=== PATIENT | female | born 1995 | race Caucasian/White ===

== ENCOUNTER 2017-04-07 07:00 | Observation (INO) | payer OTHER ==
[2017-04-07] MEDS ORDERED: NS 0.9% 1000 ML*IV.FLUID IV ONE (07:22)
[2017-04-07] MEDS ORDERED: cefTRIAXone(*) 1 GM in NS 0.9% 50 ML* 50 ML IVPB ONE (07:22)
[2017-04-07 07:49] LABS: Hematocrit 37 % (35-47); Hemoglobin 12.1 g/dl (12.0-16.0); Mean Corpuscular HGB Conc 33 g/dl (31-36); Mean Corpuscular Hemoglobin 26 pg (27-31); Mean Corpuscular Volume 79 fL (80-97); Mean Platelet Volume 9 um3 (7.4-10.4); Red Blood Count 4.62 10^6/ul (4.0-5.4); Red Cell Distribution Width 13 % (10.5-15); White Blood Count 9.6 10^3/ul (3.5-10.8)
[2017-04-07] MEDS ORDERED: Acetaminophen ADULT LIQ* 650 MG/20.3 ML UDC PO ONE (08:00)
[2017-04-07 08:04] LABS: ALT 15 U/L (7-52); AST 17 U/L (13-39); Albumin 4.1 g/dL (3.2-5.2); Alkaline Phosphatase 46 U/L (34-104); Anion Gap 10 mmol/L (2-11); BUN/Creatinine Ratio 9.6 (8-20); Blood Urea Nitrogen 8 mg/dL (6-24); C Reactive Protein 78.86 mg/L (< 5.00); CO2 Carbon Dioxide 22 mmol/L (22-32); Calcium 9.5 mg/dL (8.6-10.3); Chloride 103 mmol/L (101-111); Creatine Kinase 58 U/L (10-223); EGFR African American 110.6 (>60); Glucose 99 mg/dL (70-100); Potassium 3.5 mmol/L (3.5-5.0); Sodium 135 mmol/L (133-145); Total Protein 7.1 g/dL (6.4-8.9)
[2017-04-07 08:08] LABS: EBV Response NO
[2017-04-07 08:19] LABS: Manual Entry Verification HAN0055; Mono Internal Control QC Line Present
--- NOTE | 2017-04-07 08:20 | RAD ---
INDICATION: Flulike symptoms; shortness of breath; fever. COMPARISON: No relevant prior exams available on the [facility] PACS for comparison. TECHNIQUE: Dual energy PA and routine lateral views of the chest were obtained. REPORT: Clear lungs and pleural spaces. Negative for pneumothorax. The heart, pulmonary vasculature, and mediastinal contours are unremarkable. Unremarkable osseous structures and soft tissue contours. IMPRESSION: No evidence for pneumonia. No evidence for acute intrathoracic disease.
[2017-04-07 08:55] LABS: Urine Bacteria Absent (Absent); Urine Bilirubin Negative (Negative); Urine Glucose Negative (Negative); Urine Nitrite Negative (Negative)
[2017-04-07 09:16] LABS: Erythrocyte Sed Rate 21 mm/Hr (0-14)
[2017-04-07] MEDS ORDERED: Azithromycin TAB* 250 MG PO ONE (14:00)
[2017-04-07] MEDS ORDERED: Ciprofloxacin 0.3% OPTH.SOL* 2.5 ML BTL RIGHT EYE SCH (14:00)
[2017-04-07] MEDS: Ondansetron INJ* 2 MG/ML VIAL IV PRN (14:14)
[2017-04-07] MEDS: Acetaminophen TAB* 325 MG PO PRN (14:15)
[2017-04-07] MEDS: NS 0.9% 1000 ML* 1,000 ML IV SCH ×2 (14:17→23:44)
--- NOTE | 2017-04-07 15:34 | RAD ---
Indication: LEFT flank pain. Post RIGHT nephrectomy. Comparison: June 10, 2015 lumbar spine MRI. Technique: Renal ultrasound. Report: Negative for suspicious finding at the post nephrectomy RIGHT renal fossa. 12.6 x 4.7 x 5.8 cm normal morphology LEFT kidney with normal cortical echogenicity. No conspicuous stones, hydronephrosis, or focal renal lesions. Negative for perinephric fluid. Limited images at the urinary bladder document a robust LEFT ureteral jet. IMPRESSION: 1. Post RIGHT nephrectomy. 2. Unremarkable LEFT kidney.
--- NOTE | 2017-04-07 17:00 | ED ---
Melvin Murphy Alfonso, scribed for Cuong Birmingham MD on 04/07/17 at 0849 . Complex/Multi-Sys Presentation - HPI Summary HPI Summary: This patient is a 22 year old F presenting to [facility] accompanied by male friend with a chief complaint of generalized illness since one week ago. The patient rates the pain 6/10 in severity. Symptoms alleviated by nothing. Patient reports fever, chills, tiredness, right eye injective conjunctiva, sore throat, N/V/D, loss of appetite, lower back pain (she has 1 kidney s/p a surgery), vaginal discharge (light pink, but does not think it is menses because she is on a BCP), and dizziness. Patient denies abdominal pain. - History Of Current Complaint Chief Complaint: EDGeneral Time Seen by Provider: 04/07/17 07:21 Hx Obtained From: Patient Onset/Duration: Gradual Onset, Lasting Weeks - 1, Still Present Timing: Constant Severity Currently: Moderate - 6/10 pain Alleviating Factor(s): Nothing Associated Signs And Symptoms: Positive: Other - fever, chills, tiredness, right eye injective conjunctiva, sore throat, N/V/D, loss of appetite, lower back pain (she has 1 kidney s/p a surgery), vaginal discharge (light pink, but does not think it is menses because she is on a BCP), and dizziness. Patient denies abdominal pain. - Allergies/Home Medications Allergies/Adverse Reactions: Allergies Allergy/AdvReac Type Severity Reaction Status Date / Time No Known Allergies Allergy Verified 04/07/17 07:08 Home Medications: Home Medications Norethindrone Acetate-Ethinyl [Lo Loestrin Fe 1 mg-10 Mcg / 10 Mcg] 1 tab PO DAILY 04/07/17 [History Confirmed 04/07/17] PMH/Surg Hx/FS Hx/Imm Hx Endocrine/Hematology History: Denies: Hx Diabetes Cardiovascular History: Denies: Hx Hypertension, Hx Pacemaker/ICD History: Denies: Hx Renal Disease Sensory History: Denies: Hx Hearing Aid Opthamlomology History: Denies: Hx Legally Blind EENT History: Denies: Hx Deafness Psychiatric History: Denies: Hx Panic Disorder - Cancer History Cancer Type, 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 Hx Chemotherapy: Yes Hx Radiation Therapy: Yes - Surgical History Surgery Procedure, Year, and Place: Rt NEPHRECTOMY- TUMORS- AGE 3 Infectious Disease History: No Infectious Disease History: Denies: Traveled Outside the [place] in Last 30 Days - Family History Known Family History: Positive: Other - Cancer - Social History Occupation: Student Alcohol Use: None Hx Substance Use: No Substance Use Type: Reports: None Hx Tobacco Use: No Smoking Status (MU): Never Smoked Tobacco Review of Systems Positive: Fever, Chills, Other - generalized illness, tiredness Positive: Other - right eye injective conjunctiva Positive: Sore Throat Positive: Vomiting, Diarrhea, Nausea, Other - loss of appetite. Negative: Abdominal Pain Positive: other - vaginal discharge (light pink, but does not think it is menses because she is on a BCP) Positive: Other - lower back pain (she has 1 kidney s/p a surgery) Neurological: Other - dizziness All Other Systems Reviewed And Are Negative: Yes Physical Exam - Summary Physical Exam Summary: VITAL SIGNS: Reviewed. GENERAL: Patient is a well-developed and nourished female who is lying comfortable in the stretcher. Patient is not in any acute respiratory distress. HEAD AND FACE: No signs of trauma. No ecchymosis, hematomas or skull depressions. No sinus tenderness. EYES: PERRLA, EOMI x 2, No injected conjunctiva, no nystagmus. EARS: Hearing grossly intact. Ear canals and tympanic membranes are within normal limits. MOUTH: Exudates at right tonsil. NECK: Supple, trachea is midline, no adenopathy, no JVD, no carotid bruit, no c- spine tenderness, neck with full ROM. CHEST: Symmetric, no tenderness at palpation LUNGS: Clear to auscultation bilaterally. No wheezing or crackles. CVS: Regular rate and rhythm, S1 and S2 present, no murmurs or gallops appreciated. ABDOMEN: Soft, non-tender. No signs of distention. No rebound no guarding, and no masses palpated. Bowel sounds are normal. EXTREMITIES: FROM in all major joints, no edema, no cyanosis or clubbing. NEURO: Alert and oriented x 3. No acute neurological deficits. Speech is normal and follows commands. SKIN: Dry and warm Triage Information Reviewed: Yes Vital Signs On Initial Exam: Initial Vitals Temp Pulse Resp BP Pulse Ox 101.2 F 113 18 121/74 95 04/07/17 07:05 04/07/17 07:05 04/07/17 07:05 04/07/17 07:05 04/07/17 07:05 Vital Signs Reviewed: Yes Diagnostics - Vital Signs Vital Signs Temp Pulse Resp BP Pulse Ox 04/07/17 07:29 109/72 04/07/17 07:05 101.2 F 113 18 121/74 95 - Laboratory Lab Results: Lab Results 04/07/17 04/07/17 04/07/17 Range/Units 07:25 07:25 07:25 WBC 9.6 (3.5-10.8) 10^3/ul RBC 4.62 (4.0-5.4) 10^6/ul Hgb 12.1 (12.0-16.0) g/dl Hct 37 (35-47) % MCV 79 L (80-97) fL MCH 26 L (27-31) pg MCHC 33 (31-36) g/dl RDW 13 (10.5-15) % Plt Count 248 (150-450) 10^3/ul MPV 9 (7.4-10.4) um3 Neut % (Auto) 82.4 (38-83) % Lymph % (Auto) 9.6 L (25-47) % Morton % (Auto) 7.5 (1-9) % Eos % (Auto) 0.1 (0-6) % Baso % (Auto) 0.4 (0-2) % Absolute Neuts (auto) 7.9 H (1.5-7.7) 10^3/ul Absolute Lymphs (auto) 0.9 L (1.0-4.8) 10^3/ul Absolute Monos (auto) 0.7 (0-0.8) 10^3/ul Absolute Eos (auto) 0 (0-0.6) 10^3/ul Absolute Basos (auto) 0 (0-0.2) 10^3/ul Absolute Nucleated RBC 0 10^3/ul Nucleated RBC % 0 ESR Pending INR (Anticoag Therapy) 0.98 (0.77-1.02) APTT 25.4 L (26.0-36.3) seconds Fibrinogen 432 H (110.8-404.3) mg/dL Sodium 135 (133-145) mmol/L Potassium 3.5 (3.5-5.0) mmol/L Chloride 103 (101-111) mmol/L Carbon Dioxide 22 (22-32) mmol/L Anion Gap 10 (2-11) mmol/L BUN 8 (6-24) mg/dL Creatinine 0.83 (0.51-0.95) mg/dL Est GFR ( Amer) 110.6 (>60) Est GFR (Non-Af Amer) 86.0 (>60) BUN/Creatinine Ratio 9.6 (8-20) Glucose 99 (70-100) mg/dL Lactic Acid (0.5-2.0) mmol/L Calcium 9.5 (8.6-10.3) mg/dL Total Bilirubin 0.40 (0.2-1.0) mg/dL AST 17 (13-39) U/L ALT 15 (7-52) U/L Alkaline Phosphatase 46 (34-104) U/L Total Creatine Kinase 58 (10-223) U/L Troponin I 0.00 (<0.04) ng/mL C-Reactive Protein 78.86 H (< 5.00) mg/L Total Protein 7.1 (6.4-8.9) g/dL Albumin 4.1 (3.2-5.2) g/dL Globulin 3.0 (2-4) g/dL Albumin/Globulin Ratio 1.4 (1-3) Procalcitonin (<0.6) ng/mL Monoscreen Negative (Negative) Influenza A (Rapid) (Negative) Influenza B (Rapid) (Negative) 04/07/17 04/07/17 04/07/17 Range/Units 07:25 07:25 07:53 WBC (3.5-10.8) 10^3/ul RBC (4.0-5.4) 10^6/ul Hgb (12.0-16.0) g/dl Hct (35-47) % MCV (80-97) fL MCH (27-31) pg MCHC (31-36) g/dl RDW (10.5-15) % Plt Count (150-450) 10^3/ul MPV (7.4-10.4) um3 Neut % (Auto) (38-83) % Lymph % (Auto) (25-47) % Morton % (Auto) (1-9) % Eos % (Auto) (0-6) % Baso % (Auto) (0-2) % Absolute Neuts (auto) (1.5-7.7) 10^3/ul Absolute Lymphs (auto) (1.0-4.8) 10^3/ul Absolute Monos (auto) (0-0.8) 10^3/ul Absolute Eos (auto) (0-0.6) 10^3/ul Absolute Basos (auto) (0-0.2) 10^3/ul Absolute Nucleated RBC 10^3/ul Nucleated RBC % ESR INR (Anticoag Therapy) (0.77-1.02) APTT (26.0-36.3) seconds Fibrinogen (110.8-404.3) mg/dL Sodium (133-145) mmol/L Potassium (3.5-5.0) mmol/L Chloride (101-111) mmol/L Carbon Dioxide (22-32) mmol/L Anion Gap (2-11) mmol/L BUN (6-24) mg/dL Creatinine (0.51-0.95) mg/dL Est GFR ( Amer) (>60) Est GFR (Non-Af Amer) (>60) BUN/Creatinine Ratio (8-20) Glucose (70-100) mg/dL Lactic Acid 0.9 (0.5-2.0) mmol/L Calcium (8.6-10.3) mg/dL Total Bilirubin (0.2-1.0) mg/dL AST (13-39) U/L ALT (7-52) U/L Alkaline Phosphatase (34-104) U/L Total Creatine Kinase (10-223) U/L Troponin I (<0.04) ng/mL C-Reactive Protein (< 5.00) mg/L Total Protein (6.4-8.9) g/dL Albumin (3.2-5.2) g/dL Globulin (2-4) g/dL Albumin/Globulin Ratio (1-3) Procalcitonin < 0.1 (<0.6) ng/mL Monoscreen (Negative) Influenza A (Rapid) Negative (Negative) Influenza B (Rapid) Negative (Negative) Result Diagrams: 04/07/17 07:25 04/07/17 07:25 Lab Statement: Any lab studies that have been ordered have been reviewed, and results considered in the medical decision making process. - Radiology CXR Radiology Interpretation Completed By: Radiologist - No evidence for pneumonia. No evidence for acute intrathoracic disease. ED physician has reviewed this radiology report. - EKG 0815 Cardiac Rate: NL EKG Rhythm: Sinus Rhythm - 98 BPM EKG Interpretation: NAC. Complex Multi-Symp Course/Dx Assessment/Plan: This patient is a 22 year old F presenting to [facility] accompanied by male friend with a chief complaint of generalized illness since one week ago. The patient rates the pain 6/10 in severity. Symptoms alleviated by nothing. Patient reports fever, chills, tiredness, right eye injective conjunctiva, sore throat, N/V/D, loss of appetite, lower back pain (she has 1 kidney s/p a surgery), vaginal discharge (light pink, but does not think it is menses because she is on a BCP), and dizziness. Patient denies abdominal pain. An EKG reveals Sinus Rhythm at 98 BPM and NAC. CXR reveals, per radiologist, No evidence for pneumonia. No evidence for acute intrathoracic disease. ED physician has reviewed this radiology report. Test results with no significant abnormalities except for fibrinogen of 432, CRP of 78.9. Urinalysis negative for UTI. Monoscreen, influenza, and strep all negative. Initially the patient was positive for sepsis. Therefore, the sepsis protocol was started with IV fluids, Tylenol for the fever, and Rocephin to rule out UTI and use as a broad spectrum abx. Urinalysis negative and there is no site of infection. However, since the patient is positive for sepsis. I consulted Dr. Jean (hospitalist) at 1146 who agrees to admit for observation. The patient is agreeable with this plan. The patient is hemodynamically stable, alert and oriented x3. - Diagnoses Provider Diagnoses: SIRS (systemic inflammatory response syndrome) - Physician Notifications Discussed Care Of Patient With: Erika Jean Time Discussed With Above Provider: 11:46 Instructed by Provider To: Other - Consulted Dr. Jean (hospitalist) at 1146 who agrees to admit. Discharge - Discharge Plan Condition: Stable Disposition: ADMITTED TO [facility] Referrals: [facility] - David KULKARNI [Primary Care Provider] - The documentation as recorded by the scribe, Caetta,Raimundo accurately reflects the service I personally performed and the decisions made by me, Cuong Birmingahm MD.
[2017-04-07] MEDS ORDERED: Artificial Tears* 15 ML BTL RIGHT EYE PRN (20:44)
--- NOTE | 2017-04-07 21:00 | HP ---
CC: [facility] * HISTORY AND PHYSICAL: DATE OF ADMISSION: 04/07/17 PRIMARY CARE PROVIDER: [facility]. ATTENDING PHYSICIAN WHILE IN THE HOSPITAL: Dr. Erika Jean * (report dictated by Jose R Navarro NP). CHIEF COMPLAINT: 1. Fever. 2. Sore throat. 3. Nausea, vomiting, diarrhea. HISTORY OF PRESENT ILLNESS: Ms. Ricci is a 22-year-old female patient. She has a history of Wilms tumor status post right nephrectomy. She comes in to the ER today. Since last few days, she initially started out with having redness in her eye and discharge. She was diagnosed with pink eye. She was started on ophthalmic ciprofloxacin. She said then thereafter she started having some nausea and vomiting. She was aching all over. She was chilled. She could not get warm. She was covering up in blankets to get warm. No matter what she did , she was just feeling chilled. She had no recent trips, no recent sick contacts. She started vomiting, could not even keep water down and that was going on for the last 24 hours and she started having diarrhea. She checked her temperature and that was noted to be elevated at 101 today. She was concerned and came in. She has also been complaining of having some flank pain on the left side where her one kidney is. In addition to this, she has also been complaining of having some pink vaginal discharge, but it is not malodorous. There is no reports of dysuria, frequency, or burning with urination. She was concerned too because she noticed that she had some more redness in her eye. She came into the ER and was evaluated. Initially when she came in, she again had a fever of 101. She was tachycardic at 113. Temperature came down and heart rate came down, but her blood pressure had dropped down into the 90s and there was concern that she may require additional IV fluids and that she was showing signs of SIRS, so we were asked to evaluate. She denies having any chest pain. Denies shortness of breath. She said that her throat is sore, hurts to swallow. She states prior to this, she did have some sores in her mouth, but those are now gone. Again, there was concern and we were asked to evaluate for admission. Denies any abdominal pain, and aches mostly on the left flank. PAST MEDICAL HISTORY: Significant for Wilms tumor. PAST SURGICAL HISTORY: She has had a right nephrectomy. HOME MEDICATIONS: Include: 1. Loestrin one tablet p.o. daily. 2. Cipro drops one drop every 4 hours to the right eye. ALLERGIES TO MEDICATION: Include no known drug allergies. FAMILY HISTORY: She states both her parents are healthy. She specifically denied of them having any history of cancers, strokes, high blood pressure, or heart disease. SOCIAL HISTORY: She does not smoke. She does not drink. 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 Surrogate decision makers are her parents. REVIEW OF SYSTEMS: There is a documented fever. She denied any significant weight change. She was no double vision. She denies having any ear discharge. She denies having any rhinorrhea. She does state that she feels congested. She does admit to nausea, vomiting and diarrhea. No abdominal pain with the exception of left flank pain. She denied any dysuria, no frequency, no seizure , no loss of consciousness, no pruritus and no skin ulcerations. Review of 14 systems completed, all others negative. PHYSICAL EXAMINATION GENERAL: At this time, Ms. Ricci is a 22-year-old female patient, she is sitting in the ED stretcher. She does not appeared to be in any acute distress. VITAL SIGNS: Blood pressure 100/67, pulse 82, respirations 18, O2 sat 97%, temperature initially was 101.2, it is now 98.8. HEENT: Head is atraumatic. Eyes: Sclerae was anicteric. There was conjunctival hemorrhage noted in the right eye with petechiae surrounding that right eye. There did not appear to be any erythema to the lower lid. Left eye with no signs of hemorrhage were noted. EOMs intact. Pupils are reactive to light. Throat: Oral mucosa appears to be moist. There is actually no oropharyngeal erythema at this point. No patchy exudates. No sores are noted in the mouth. NECK: Supple. LUNGS: Clear to auscultation bilaterally. No wheezes, rales, or rhonchi. HEART: Heart sounds S1 and S2, regular rate and rhythm. No murmurs, rubs, or gallops. ABDOMEN: Soft, flat, nontender. She did have some tenderness on the left CVA. EXTREMITIES: Pulses are +2 throughout. She is moving all 4 extremities with 5/ 5 strength. NEUROLOGIC: The patient is awake, alert, oriented x3. No gross focal deficits. SKIN: Intact. LABORATORY DATA: WBC is 9.6, RBC 4.62, hemoglobin 12.1, hematocrit 37, and platelet count of 248. ESR was 21. INR was 0.98, PTT was 25. Her sodium is 135, potassium 3.5, chloride of 103, bicarb was 22, BUN is 8, creatinine 0.83, lactate 0.9, calcium 9.5, total bili 0.4, AST 17, ALT 15, alk phos 46. CK 58. Troponin 0. CRP is 78. Albumin of 4.1. Procalcitonin less than 1. Urine shows 2+ ketones, 2+ blood, presence of squamous epithelial cells. Wake, flu, and rapid strep were all negative. Beta hCG is pending. She had a chest x-ray obtained today, with impression: No evidence for pneumonia. No evidence for acute intrathoracic disease. EKG shows normal sinus rhythm, rate of [address] No [address] elevations or T-wave inversions noted. No previous for comparison. Old medical records reviewed. ASSESSMENT AND PLAN: Ms. Ricci is a 22-year-old female patient coming into the ED today with complaints of nausea, vomiting, diarrhea. She also has been complaining of ache in the left flank. We are asked to evaluate for admission. She will be admitted under observation status: 1. Systemic inflammatory response syndrome. When she came in, she was tachycardic, in addition to this has had a fever. This is probably related to viral illness. However, because of the left flank pain and the fact that she has one kidney from Wilms disease and the fact that she has got some blood in the urine, I would like to get an ultrasound of the renal system to make sure there is no obstruction or stones, to make sure thinks appear to be appropriately draining. She has been pancultured here in the ED. We will monitor the culture. She did get hypotensive down into the 90s here, but I think it is probably from dehydration as she has been vomiting and will continue to follow. 2. Vaginal discharge. I have asked the ER provider to obtain a pelvic exam for me and we will send off for GC, Chlamydia, and Trichomonas as well and we will follow. I am also checking beta hCG. 3. Conjunctival hemorrhage to the right eye. Again, this is probably conjunctival hemorrhage from her vomiting. It should absorb on its own. I will continue the Cipro drops to completion as they were prescribed previously for conjunctivitis and she can follow back up with Nathaly for this. 4. DVT prophylaxis. She is at low risk. SCDs. 5. Fluids, electrolytes, and nutrition. Normal saline at 125 an hour. In addition to this, we will place her on clear liquid diet. 5. Code status. Full code. TIME SPENT: Time spent on the admission was 60 minutes, greater than half the time was spent [id number] with the patient obtaining my history of physical; the other half time was spent going over the plan of care with the patient and implementing plan of care. I did discuss the plan of care with my attending Dr. Jean; she is in agreement. JOSE R NAVARRO, ROSAURA [id number]/CPS #: [id number] MAGDA
[2017-04-08] MEDS: Ondansetron INJ* 2 MG/ML VIAL IV PRN ×2 (01:20→18:14)
[2017-04-08] MEDS: Acetaminophen TAB* 325 MG PO PRN ×3 (01:23→21:41)
[2017-04-08] MEDS ORDERED: Benzocaine/Menthol LOZ* 1 LOZENGE MT PRN (01:25)
[2017-04-08 05:49] LABS: Hematocrit 34 % (35-47); Mean Corpuscular HGB Conc 33 g/dl (31-36); Mean Corpuscular Hemoglobin 26 pg (27-31); Mean Corpuscular Volume 80 fL (80-97); Mean Platelet Volume 9 um3 (7.4-10.4); Red Blood Count 4.21 10^6/ul (4.0-5.4); Red Cell Distribution Width 13 % (10.5-15); White Blood Count 5.8 10^3/ul (3.5-10.8)
[2017-04-08 06:04] LABS: BUN/Creatinine Ratio 5.8 (8-20); Calcium 8.4 mg/dL (8.6-10.3); EGFR African American 136.8 (>60); EGFR Non-African American 106.4 (>60); Potassium 3.5 mmol/L (3.5-5.0)
[2017-04-08] MEDS: NS 0.9% 1000 ML* 1,000 ML IV SCH ×2 (08:07→12:41)
[2017-04-08] MEDS ORDERED: Benzocaine/Menthol LOZ* 1 LOZENGE PO PRN (08:10)
[2017-04-08] MEDS ORDERED: Benzocaine/Menthol LOZ* 1 LOZENGE ONE (08:13)
--- NOTE | 2017-04-08 10:05 | PN ---
Subjective Date of Service: 04/08/17 Interval History: Patient seen and examined at bedside. Patient reports sore throat and discomfort at the IV site. Tmax 101.3 at midnight now 99. Denies N/V/D at this time. Requesting a little more solid food. Denies visual disturbances in L eye. Reports extra tearing and discharge. Family History: Unchanged from Admission Social History: Unchanged from Admission Past Medical History: Unchanged from Admission Objective Active Medications: Acetaminophen (Tylenol Tab*) 650 mg PO Q4H PRN Ciprofloxacin HCl (Cipro 0.3% Opth*) 1 drop RIGHT EYE Q4HR PETRONA Ondansetron HCl (Zofran Inj*) 4 mg IV Q6H PRN Polyvinyl Alcohol (Polyvinyl Alcohol 1.4% Opth*) 1 drop RIGHT EYE Q2H PRN Throat Lozenges (Chloraseptic Almas*) 1 almas PO Q6H PRN Vital Signs Temp Pulse Resp BP Pulse Ox 99.2 F 84 18 107/64 99 04/08/17 08:01 04/08/17 08:01 04/08/17 08:01 04/08/17 08:01 04/08/17 08:01 Oxygen Devices in Use Now: None Appearance: sitting up in bed, NAD Eyes: No Scleral Icterus, PERRLA, - - R eye with circumferential bruising and small conjunctival hemorrhage. Ears/Nose/Mouth/Throat: - - no oropharyngeal edema or pathcy exudates. Neck: NL Appearance and Movements; NL JVP Respiratory: Symmetrical Chest Expansion and Respiratory Effort, Clear to Auscultation Cardiovascular: NL Sounds; No Murmurs; No JVD, RRR, No Edema Extremities: No Edema Skin: No Rash or Ulcers Neurological: Alert and Oriented x 3, NL Muscle Strength and Tone Lines/Tubes/Other Access: Clean, Dry and Intact Peripheral IV Nutrition: Taking PO's Result Diagrams: 04/08/17 05:29 04/08/17 05:29 Microbiology and Other Data: . Assess/Plan/Problems-Billing Patient is a 22 y/o F w/ no significant PMH who presented to the ER w/ the c/o of fever and body aches found to be tachycardiac with a likely viral illness. - Patient Problems (1) SIRS (systemic inflammatory response syndrome) Comment: Tachycardia improved. Fever up to 101 at midnight and has improved. Suspect viral illness. All testing thus far negative - flu, strep A, mono, blood cx. (2) Viral illness Comment: See problem #1. Continue supportive care with IVF, throat lozenges, and Tylenol. Chlamydia and trich test pending yet patient has no pelvic pain and this seems unlikely as the cause of her SIRS. (3) Viral conjunctivitis of right eye Comment: Likely viral but continue Cipro drops as she has almost completed the course. (4) Left flank pain Comment: Hx of left nephrectomy. Renal ultrasound negative for any obstructing stone or other abnormality. (5) Vaginal discharge Comment: Chlamydia and Trichomonaisis pending yet no pelvic pain so seems unlikely. (6) DVT prophylaxis Comment: low risk SCDs (7) Full code status Status and Disposition: OBV for fever. If fever free all day possible discharge later today.
[2017-04-08] MEDS: Ciprofloxacin 0.3% OPTH.SOL* 2.5 ML BTL RIGHT EYE SCH ×4 (10:30→21:42)
[2017-04-08] MEDS: metroNIDAZOLE TAB* 250 MG PO SCH ×2 (14:38→21:41)
[2017-04-09] MEDS: Ciprofloxacin 0.3% OPTH.SOL* 2.5 ML BTL RIGHT EYE SCH ×3 (00:49→08:39)
[2017-04-09] MEDS: NS 0.9% 1000 ML* 1,000 ML IV SCH (00:49)
[2017-04-09] MEDS: Ondansetron INJ* 2 MG/ML VIAL IV PRN (05:10)
--- NOTE | 2017-04-09 08:26 | DCNOTE ---
Subjective Date of Service: 04/09/17 Interval History: Patient seen and examined at bedside. Patient has low grade temp this AM. Still c/o of intermittent nausea. Feels much better overall. Family History: Unchanged from Admission Social History: Unchanged from Admission Past Medical History: Unchanged from Admission Objective Active Medications: Acetaminophen (Tylenol Tab*) 650 mg PO Q4H PRN Amoxicillin (Amoxicillin Po (*)) 500 mg PO TID PETRONA Ciprofloxacin HCl (Cipro 0.3% Opth*) 1 drop RIGHT EYE Q4HR PETRONA Metronidazole (Flagyl Tab*) 500 mg PO TID PETRONA Ondansetron HCl (Zofran Inj*) 4 mg IV Q6H PRN Polyvinyl Alcohol (Polyvinyl Alcohol 1.4% Opth*) 1 drop RIGHT EYE Q2H PRN Throat Lozenges (Chloraseptic Almas*) 1 almas PO Q6H PRN Vital Signs Temp Pulse Resp BP Pulse Ox 99.8 F 87 16 108/68 99 04/09/17 03:46 04/09/17 03:46 04/09/17 03:46 04/09/17 03:46 04/09/17 03:46 Oxygen Devices in Use Now: None Appearance: sitting up in bed, NAD Eyes: No Scleral Icterus, PERRLA Ears/Nose/Mouth/Throat: NL Teeth, Lips, Gums, - - patchy exudates Neck: NL Appearance and Movements; NL JVP Respiratory: Symmetrical Chest Expansion and Respiratory Effort, Clear to Auscultation Cardiovascular: NL Sounds; No Murmurs; No JVD, RRR Extremities: No Edema Skin: No Rash or Ulcers Neurological: Alert and Oriented x 3, NL Muscle Strength and Tone Lines/Tubes/Other Access: Clean, Dry and Intact Peripheral IV Result Diagrams: 04/08/17 05:29 04/08/17 05:29 Microbiology and Other Data: . Assess/Plan/Problems-Billing Patient is a 22 y/o F w/ no significant PMH who presented to the ER w/ the c/o of fever and body aches found to be tachycardiac with a likely viral illness. - Patient Problems (1) SIRS (systemic inflammatory response syndrome) Comment: Tachycardia improved. Fever up to 101 at midnight and has improved. Suspect viral illness. All testing thus far negative - flu, strep A, mono, blood cx. (2) Viral illness Comment: Suspect pharyngitis. Tx with 10 days of amoxicillin. (3) Viral conjunctivitis of right eye Comment: Likely viral but continue Cipro drops as she has almost completed the course. (4) Left flank pain Comment: Hx of left nephrectomy. Renal ultrasound negative for any obstructing stone or other abnormality. (5) Vaginal discharge Comment: Positive for Gardnerella; tx with 5 day course of Flagyl. (6) DVT prophylaxis Comment: low risk SCDs (7) Full code status Status and Disposition: OBV for fever. Stable to be discharged home.
[2017-04-09] MEDS: metroNIDAZOLE TAB* 250 MG PO SCH (08:39)
[2017-04-09] MEDS: Acetaminophen TAB* 325 MG PO PRN (08:39)
[2017-04-09] MEDS ORDERED: Amoxicillin PO (*) 500 MG CAP PO SCH (09:00)
[2017-04-09 09:29] VITALS: BP 99/52
--- NOTE | 2017-04-09 12:30 | DS ---
CC: [facility] * DISCHARGE SUMMARY: DATE OF ADMISSION: 04/07/17 DATE OF DISCHARGE: 04/09/17 PRIMARY CARE PROVIDER: [facility]. ATTENDING PHYSICIAN: Payton Machado MD * (report dictated by Nereida Huddleston NP). PRIMARY DIAGNOSES: 1. Acute pharyngitis. 2. Systemic inflammatory response syndrome. 3. Bacterial vaginosis. STUDIES WHILE IN THE HOSPITAL: 1. Chest x-ray, 04/07/17, no evidence for pneumonia, no evidence for acute intrathoracic disease. 2. Limited left renal ultrasound, 04/07/17, post right nephrectomy, unremarkable left kidney. MEDICATIONS AT THE TIME OF DISCHARGE: New medications: 1. Tylenol 650 mg oral every 4 hours as needed. 2. Amoxicillin 500 mg oral 3 times daily. 3. Flagyl 500 mg oral 3 times daily. 4. Zofran 4 mg every 6 hours as needed. 5. The patient has been instructed to resume Lo Loestrin control 1 tablet oral daily. 6. Cipro 0.3 drops 1 drop right eye 4 times daily. HISTORY OF PRESENT ILLNESS AND HOSPITAL COURSE: Ms. Ricci is a 22-year-old female with history of a Wilms tumor, status post right nephrectomy who presented to the emergency room on 04/07/17 with complaints of nausea, vomiting , flank pain, and sore throat. In addition, she had a fever up to 101 and was tachycardic up to 113. For these reasons, the patient was admitted to the medical floor for further workup and treatment. The patient had a flu and strep test as well as a mono screen that were all negative. She had blood cultures that were negative. The patient was given aggressive IV fluid resuscitation. With fluids, the patient's tachycardia improved. The patient did develop patchy exudates in her throat and will be treated with a 10-day course of amoxicillin at discharge. Upon presentation, the patient also complained of pinkish vaginal discharge. The patient had a pelvic exam and was positive for Gardnerella. The patient was negative for gonorrhea as well as trichomoniasis. The patient will be given a course of Flagyl, which she can choose to start treatment for the Gardnerella whenever she would like. PHYSICAL EXAMINATION: Vital Signs: On 04/09/17; temperature 99.8, heart rate 87, respiratory rate 16, blood pressure 108/68, O2 saturation is 99% on room air. DISPOSITION: At this point, the patient was tolerating oral intake and was stable to be discharged home. DISCHARGE PLAN: The patient will be discharged on a regular diet. The patient has been instructed to follow up with [facility] later this week before she returns home for the semester. The patient has been instructed to return to the hospital if she experiences any worsening fever or inability to tolerate oral liquids and solids. I reviewed the instructions with the patient and her boyfriend. They are agreeable with the discharge today. This is a summarized report of a complex medical history and hospital stay. For more details, please see the entire medical record. TIME SPENT: Time for discharge was 50 minutes, and 25 minutes were spent with the patient discussing medications at discharge and followup instructions. CONDITION ON DISCHARGE: Stable. NEREIDA HUDDLESTON NP [id number]/CPS #: [id number] MAGDA
== END 2017-04-09 10:30 | disposition home or self-care (01) ==
LOC: ED 07:00 → MED 12:43
PROVIDERS: ADMIT Nurse Practitioner Family; ATTEND Internal Medicine
DX: J02.9 Acute pharyngitis, unspecified (principal); R65.10 Systemic inflammatory response syndrome (SIRS) of non-infectious origin without acute organ dysfunction; N76.0 Acute vaginitis; B96.89 Other specified bacterial agents as the cause of diseases classified elsewhere; R50.9 Fever, unspecified; R11.2 Nausea with vomiting, unspecified; R19.7 Diarrhea, unspecified; H11.31 Conjunctival hemorrhage, right eye; H10.9 Unspecified conjunctivitis; Z90.5 Acquired absence of kidney
CPT/HCPCS: 36415; 71020; 76775; 80048; 80053; 81003; 81015; 82550; 83605; 84145; 84484; 84702; 85025; 85384; 85610; 85652; 85730; 86140; 86308; 87040; 87045; 87046; 87077; 87150; 87177; 87205; 87209; 87425; 87449; 87480; 87491; 87493; 87502; 87510; 87591; 87651; 87661; 87899; 93005; 96361; 96365; 96374; 96376; 99283; A9270-GY; G0378; J0696; J2405